=== PATIENT | male | born 1980 | race African-American/Black ===

== ENCOUNTER 2017-06-19 03:05 | Emergency (ER) | payer SELFPAY ==
[~2017-06-19] VITALS: Ht 198.1 cm; Wt 75.0 kg
[~2017-06-19 03:05] MED LIST: DICL75 PO
[2017-06-19 03:08] VITALS: BP 153/89; PULSE 82; RESP 16; TEMP 98; O2SAT 97
[2017-06-19] MEDS ORDERED: SODIUM CHLOR 0.9% 1000 ML INJ 1,000 ML IV SCH (03:25)
[2017-06-19] MEDS ORDERED: ONDANSETRON HCL 4 MG/2 ML VIAL IVP ONE (03:30)
[2017-06-19] MEDS ORDERED: FAMOTIDINE 20 MG/2 ML VIAL IV PUSH ONE (03:30)
[2017-06-19] MEDS ORDERED: SODIUM CHLORIDE 0.9% FLUSH 10 ML FLUSH IV FLUSH PRN (03:30)
[2017-06-19 04:31] LABS: BASOPHIL % 1.3 % (0.0-2.0); HEMATOCRIT 46.1 % (39.0-51.0); HEMOGLOBIN 15.9 GM/DL (13.0-17.0); LYMPH % 34.6 % (9.0-44.0); LYMPHOCYTE # 1.3 TH/MM3 (1.0-4.8); MEAN CELL VOLUME 99.9 FL (80.0-100.0); MEAN CORPUSCULAR HEMOGLOBIN 34.4 PG (27.0-34.0); MEAN CORPUSCULAR HGB CONC 34.5 % (32.0-36.0); MEAN PLATELET VOLUME 8.3 FL (7.0-11.0); MONOCYTE # 0.4 TH/MM3 (0-0.9); NEUT % 54.1 % (16.0-70.0); PLATELET COUNT 115 TH/MM3 (150-450); RED BLOOD COUNT 4.61 MIL/MM3 (4.50-5.90); RED CELL DISTRIBUTION WIDTH 14.1 % (11.6-17.2); WHITE BLOOD COUNT 3.7 TH/MM3 (4.0-11.0)
[2017-06-19] MEDS ORDERED: DIATRIZOATE MEGLUM/DIATRIZOATE SOD 9 ML CUP ONE (05:13)
[2017-06-19] MEDS ORDERED: SODIUM CHLOR 0.9% 1000 ML INJ 1,000 ML IV ONE ×2 (05:15→07:30)
--- NOTE | 2017-06-19 05:28 | RADRPT ---
EXAM DATE/TIME: 06/19/2017 05:09 [facility] COMPARISON: No previous studies available for comparison. INDICATIONS : Chest pain. MEDICAL HISTORY : Pancreatitis. SURGICAL HISTORY : None. ENCOUNTER: Initial ACUITY: 1 day PAIN SCORE: 8/10 LOCATION: Bilateral chest FINDINGS: A single view of the chest demonstrates the lungs to be symmetrically aerated without evidence of mas s, infiltrate or effusion. The cardiomediastinal contours are unremarkable. Osseous structures are intact. CONCLUSION: No acute disease. Fernando Koenig MD on June 19, 2017 at 5:25 Board Certified Radiologist. This report was verified electronically.
[2017-06-19 05:29] LABS: BLOOD UREA NITROGEN 9 MG/DL (7-18)
[2017-06-19 05:30] LABS: CREATININE 1.03 MG/DL (0.60-1.30); GLOMERULAR FILTRATION RATE 98 ML/MIN (>89); GLUCOSE,RANDOM 89 MG/DL (74-106)
[2017-06-19 05:32] LABS: ALBUMIN 3.8 GM/DL (3.4-5.0); CALCIUM 8.3 MG/DL (8.5-10.1); TOTAL PROTEIN 8.3 GM/DL (6.4-8.2)
[2017-06-19 05:33] LABS: ALKALINE PHOSPHATASE 84 U/L (45-117); ALT (GPT) 84 U/L (12-78); AST (GOT) 109 U/L (15-37); SODIUM (NA) 142 MEQ/L (136-145); TOTAL BILIRUBIN ADULT 1.1 MG/DL (0.2-1.0)
[2017-06-19 05:34] LABS: BICARBONATE 23.7 MEQ/L (21.0-32.0); CHLORIDE 104 MEQ/L (98-107); LIPASE 181 U/L (73-393)
[2017-06-19] MEDS ORDERED: IOHEXOL 350 MG/ML 10 ML VIAL (for RAD DIAG) IVCONTRAST ONE (06:59)
--- NOTE | 2017-06-19 07:16 | RADRPT ---
EXAM DATE/TIME: 06/19/2017 06:44 [facility] COMPARISON: No previous studies available for comparison. INDICATIONS : Abdominal pain and vomiting. IV CONTRAST: 100 cc Omnipaque 350 (iohexol) IV ORAL CONTRAST: Prescribed oral contrast ingested. RADIATION DOSE: 6.64 CTDIvol (mGy) MEDICAL HISTORY : Hypertension. Pancreatitis. SURGICAL HISTORY : None. ENCOUNTER: Initial ACUITY: 1 day PAIN SCALE: 7/10 LOCATION: All quadrants. TECHNIQUE: Volumetric scanning of the abdomen and pelvis was performed. Using automated exposure control and ad justment of the mA and/or kV according to patient size, radiation dose was kept as low as reasonably achievable to obtain optimal diagnostic quality images. DICOM format image data is available electro nically for review and comparison. FINDINGS: LOWER LUNGS: The visualized lower lungs are clear. LIVER: Decreased attenuation without lesion. There is no dilation of the biliary tree. No calcified gallst ones. SPLEEN: Normal size without lesion. PANCREAS: Within normal limits. KIDNEYS: Normal in size and shape. There is no mass, stone or hydronephrosis. ADRENAL GLANDS: Within normal limits. VASCULAR: There is no aortic aneurysm. BOWEL/MESENTERY: There is no distention versus diffuse wall thickening of the colon.. There is no free intraperitonea l air or fluid. Normal appendix. ABDOMINAL WALL: Within normal limits. RETROPERITONEUM: There is no lymphadenopathy. BLADDER: No wall thickening or mass. REPRODUCTIVE: Within normal limits. INGUINAL: There is no lymphadenopathy or hernia. MUSCULOSKELETAL: Within normal limits for patient age. CONCLUSION: 1. Wall thickening versus nondistention of the colon which can be seen with colitis. No perforation o r abscess. 2. Severe hepatic steatosis. Evelio Banks MD on June 19, 2017 at 7:11 Board Certified Radiologist. This report was verified electronically.
[2017-06-19 07:18] VITALS: BP 118/70; PULSE 83; RESP 17; O2SAT 98
[2017-06-19] MEDS ORDERED: FAMO1TAB37 PO (07:30)
[2017-06-19] MEDS ORDERED: CARA1TAB6 PO (07:30)
--- NOTE | 2017-06-19 07:30 | PD ---
HPI . Generalized weakness Chief Complaint: General Weakness Time Seen by Provider: 03:25 Travel History International Travel<30 days: No Contact w/Intl Traveler<30days: No Traveled to known affect area: No History of Present Illness HPI 37-year-old male chronic alcoholic history of pancreatitis secondary to same presents with generalized malaise weakness and epigastric pain consistent with prior exacerbation of pancreatitis. Patient's inhalerand has been drinking his normal regular amount daily. Patient is a poor historian, not offering history , above as per patient's significant other [facility] Past Medical History Narrative Medical Past medical history reviewed Blood Disorders: No Hypertension: Yes Immunizations Current: Yes Tetanus Vaccination: < 5 Years Influenza Vaccination: No Social History Alcohol Use: Yes (BEER DAILY) Tobacco Use: Yes Substance Use: Yes (MARIJUANA) Allergies-Medications (Allergen,Severity, Reaction): Coded Allergies: lisinopril (Unverified Allergy, Severe, Swelling, 06/19/17) Reported Meds & Prescriptions Reported Meds & Active Scripts Active No Active Prescriptions or Reported Medications Narrative Medication Allergies medications reviewed Review of Systems Except as stated in HPI: all other systems reviewed are Neg General / Constitutional: No: Fever Eyes: No: Visual changes HENT: No: Headaches Cardiovascular: No: Chest Pain or Discomfort Respiratory: No: Shortness of Breath Gastrointestinal: Positive: Nausea, Abdominal Pain, No: Vomiting, Hematemesis, Hematochezia Genitourinary: No: Dysuria Musculoskeletal: No: Pain Skin: No Rash Neurologic: No: Weakness Psychiatric: No: Depression Endocrine: No: Polydipsia Hematologic/Lymphatic: No: Easy Bruising Physical Exam Narrative GENERAL: Awake and alert, no acute distress SKIN: Warm and dry. Color is normal no diaphoresis cyanosis or pallor HEAD: Atraumatic. Normocephalic. EYES: Pupils equal and round. No scleral icterus. No injection or drainage. ENT: No nasal bleeding or discharge. Mucous membranes pink and moist. NECK: Trachea midline. No JVD. CARDIOVASCULAR: Regular rate and rhythm. S1-S2 no murmurs or rubs or gallops RESPIRATORY: No accessory muscle use. Clear to auscultation. Breath sounds equal bilaterally. GASTROINTESTINAL: Abdomen soft, mildly tender epigastrium no rebound or guarding organomegaly appreciated nondistended. Hepatic and splenic margins not palpable. MUSCULOSKELETAL: Extremities without clubbing, cyanosis, or edema. No obvious deformities. NEUROLOGICAL: Awake and alert. No obvious cranial nerve deficits. Motor grossly within normal limits. Five out of 5 muscle strength in the arms and legs. Normal speech. PSYCHIATRIC: Appropriate mood and affect; insight and judgment normal. Data Data Last Documented VS Vital Signs Date Time Temp Pulse Resp B/P (MAP) Pulse Ox O2 Delivery O2 Flow Rate FiO2 06/19/17 07:18 83 17 118/70 (86) 98 Room Air 06/19/17 03:08 98.0 Orders Orders Complete Blood Count With Diff (06/19/17 03:25) Comprehensive Metabolic Panel (06/19/17 03:25) Lipase (06/19/17 03:25) Lactic Acid (06/19/17 03:25) Prothrombin Time / Inr (Pt) (06/19/17 03:25) Act Partial Throm Time (Ptt) (06/19/17 03:25) Urinalysis - C+S If Indicated (06/19/17 03:25) Iv Access Insert/Monitor (06/19/17 03:25) Ecg Monitoring (06/19/17 03:25) Oximetry (06/19/17 03:25) Ondansetron Inj (Zofran Inj) (06/19/17 03:30) Sodium Chlor 0.9% 1000 Ml Inj (Ns 1000 M (06/19/17 03:25) Sodium Chloride 0.9% Flush (Ns Flush) (06/19/17 03:30) Electrocardiogram (06/19/17 03:25) Famotidine Inj (Pepcid Inj) (06/19/17 03:30) Salicylates (Aspirin) (06/19/17 04:24) Tylenol (Acetaminophen) (06/19/17 04:19) Alcohol (Ethanol) (06/19/17 04:19) Sodium Chlor 0.9% 1000 Ml Inj (Ns 1000 M (06/19/17 05:15) Ct Abd/Pel W Iv Contrast(Rout) (06/19/17 ) Chest, Single Ap (06/19/17 ) Blood Gas Venous (Vbg) (06/19/17 05:03) Oral Contrast - Adult (06/19/17 05:07) Diatrizoate Liq ( Gastroview Liq) (06/19/17 05:13) Iohexol 350 Inj (Omnipaque 350 Inj) (06/19/17 06:59) Ns (Bolus) Inj (06/19/17 07:30) Labs Laboratory Tests Test 06/19/17 03:35 06/19/17 04:19 06/19/17 05:10 Lactic Acid Level 3.4 mmol/L White Blood Count 3.7 TH/MM3 Red Blood Count 4.61 MIL/MM3 Hemoglobin 15.9 GM/DL Hematocrit 46.1 % Mean Corpuscular Volume 99.9 FL Mean Corpuscular Hemoglobin 34.4 PG Mean Corpuscular Hemoglobin Concent 34.5 % Red Cell Distribution Width 14.1 % Platelet Count 115 TH/MM3 Mean Platelet Volume 8.3 FL Neutrophils (%) (Auto) 54.1 % Lymphocytes (%) (Auto) 34.6 % Monocytes (%) (Auto) 10.0 % Eosinophils (%) (Auto) 0.0 % Basophils (%) (Auto) 1.3 % Neutrophils # (Auto) 2.0 TH/MM3 Lymphocytes # (Auto) 1.3 TH/MM3 Monocytes # (Auto) 0.4 TH/MM3 Eosinophils # (Auto) 0.0 TH/MM3 Basophils # (Auto) 0.0 TH/MM3 CBC Comment DIFF FINAL Differential Comment Prothrombin Time 10.0 SEC Prothromb Time International Ratio 1.0 RATIO Activated Partial Thromboplast Time 24.5 SEC Blood Urea Nitrogen 9 MG/DL Creatinine 1.03 MG/DL Random Glucose 89 MG/DL Total Protein 8.3 GM/DL Albumin 3.8 GM/DL Calcium Level 8.3 MG/DL Alkaline Phosphatase 84 U/L Aspartate Amino Transf (AST/SGOT) 109 U/L Alanine Aminotransferase (ALT/SGPT) 84 U/L Total Bilirubin 1.1 MG/DL Sodium Level 142 MEQ/L Potassium Level 3.3 MEQ/L Chloride Level 104 MEQ/L Carbon Dioxide Level 23.7 MEQ/L Anion Gap 14 MEQ/L Estimat Glomerular Filtration Rate 98 ML/MIN Lipase 181 U/L Salicylates Level 4.7 MG/DL Acetaminophen Level 2.0 MCG/ML Ethyl Alcohol Level 221 MG/DL Blood Gas Puncture Site FROM IV SITE Blood Gas Patient Temperature 98.6 Venous Blood pH 7.39 Venous Blood Partial Pressure CO2 43 mmHg Venous Blood Partial Pressure O2 59 mmHg Venous Blood HCO3 25 mmol/L Venous Blood Oxygen Saturation 85 % Venous Blood Oxygen Content 18.7 Vol % Venous Blood Base Excess 0.9 mmol/L Oxygen Delivery Device ROOM AIR Blood Gas Inspired Oxygen 21 % MDM Medical Decision Making Medical Screen Exam Complete: Yes Emergency Medical Condition: Yes Medical Record Reviewed: Yes Differential Diagnosis Pancreatitis, alcohol intoxication, dehydration Narrative Course Patient's laboratory examinations reviewed. Patient has elevated lactic acid 3.4, elevated alcohol level 221. Conjunction with patient's tenderness in his epigastrium, history of chronic pancreatitis that is recurrent. Elevated lactic acidosis, patient had CT abdomen performed. No significant intra- abdominal acute process. She has a fatty liver, mildly dilated common bile duct without obvious obstruction. Patient greatly improved with IV normal saline. Continuation of same with by mouth challenge. Patient written for discharge with encouragement to follow-up with his primary physician, as well as alcohol rehabilitation. Patient and significant were appreciative for their care Diagnosis Primary Impression: Alcohol intoxication Qualified Codes: F10.929 - Alcohol use, unspecified with intoxication, unspecified Additional Impression: Dehydration Patient Instructions: Alcohol Intoxication (ED), Dehydration (ED), Gastritis ( ED), General Instructions Additional Instructions: Drink plenty of fluids. Drink alcohol in moderation, alcohol rehabilitation suggested. Carafate 1 g 3 times a day. Pepcid 20 mg twice daily Follow-up with your doctor. Return for worsening Scripts Famotidine (Pepcid) 20 Mg Tab 20 MG PO BID, #60 TAB 0 Refills Prov: Elliot Mclaughlin MD 06/19/17 Sucralfate (Carafate) 1 Gram Tab 1 GM PO TID for Ulcer Prevention, #90 TAB 0 Refills On empty stomach Prov: Elliot Mclaughlin MD 06/19/17 Disposition: 01 DISCHARGE HOME Condition: Stable Elliot Mclaughlin MD Jun 19, 2017 07:30
[2017-06-19 07:38] LABS: BILIRUBIN, URINE NEG (NEG); BLOOD, URINE NEG (NEG); GLUCOSE,URINE NEG (NEG); HYALINE CAST, URINE 4 /lpf (RARE); KETONE, URINE 80 mg/dL (NEG); MUCUS URINE MANY /lpf (OCC); NITRITE,URINE NEG (NEG); PH, URINE 5.5 (5.0-8.5); SQUAMOUS EPITHELIAL CELL URINE 1 /hpf (0-5); URINE COLOR YELLOW (YELLW/STRAW); URINE LEUKOCYTE ESTERASE NEG (NEG)
--- NOTE | 2017-06-19 14:48 | EKG ---
Date Performed: 06/19/2017 Time Performed: 03:22:38 PTAGE: 37 years EKG: Sinus rhythm WITH SINUS ARRHYTHMIA MODERATE T-WAVE ABNORMALITY, CONSIDER LATERAL ISCHEMIA ABNORMAL ECG PREVIOUS TRACING : 08/31/2014 04.59 Now consider anteroseptal myocardial infarction - age indet erminate DOCTOR: Jorge Luis Marie Interpretating Date/Time 06/19/2017 14:47:01
== END 2017-06-19 08:29 | disposition home or self-care (01) ==
LOC: NEPE 03:05
DX: F10.229 Alcohol dependence with intoxication, unspecified (principal); E86.0 Dehydration; R10.13 Epigastric pain; Y90.7 Blood alcohol level of 200-239 mg/100 ml
CPT/HCPCS: 71045; 74177; 80053; 80307; 81001; 82805; 83605; 83690; 85025; 85610; 85730; 93005; 96361; 96374; 96375; 99285; J2405; J7030; Q9963; Q9967